=== PATIENT | male | born 2000 | race Caucasian/White ===

== ENCOUNTER 2020-08-31 23:36 | Emergency (ER) | payer SELFPAY ==
[2020-08-31 23:38] VITALS: BP 172/101; PULSE 120; RESP 20; TEMP 36.9; O2SAT 95; BMI 35.3
--- NOTE | 2020-08-31 23:48 | ED.DCSUM_ITS ---
History of Present Illness Chief Complaint: Anxiety Informant: Patient Narrative: Stated he was sitting watching TV tonight and felt lightheaded for a few seconds. His symptoms went away. He was sitting watching television not ambulating. Went outside to get fresh air. Feels back to normal and feels normal now. He does have a history of hypertension takes lisinopril. Denies any illicit drug use or alcohol use. Denies any cardiac symptoms otherwise. Did not actually feel like he was going to pass out. Does not feel anxious at this time. Past Medical History - Allergies and Home Meds Allergies/Adverse Reactions: Allergies No Known Allergies Allergy (Verified 08/31/20 23:40) Primary Care Physician: NOT,DEFINED [Primary Care Provider] - Prior records reviewed: Yes Past Medical History: - Surgical History: no surgical history Smoking Status: Never smoker Alcohol: None Drugs: None Review of Systems General: Denies: Chills, Fever, Sweats Eyes: Denies: Visual changes - bilaterally, Diplopia ENT: Denies: Rhinorrhea, Sore throat Cardiovascular: Denies: Chest pain, Palpitations Respiratory: Denies: Dyspnea, Cough, Dyspnea on exertion Gastrointestinal: Denies: Abdominal pain, Nausea, Vomiting, Diarrhea, Melena, Hematochezia Genitourinary: Denies: Dysuria, Hematuria, Frequency Musculoskeletal: Denies: Back pain, Extremity Pain Skin: Denies: Rash, Wounds Neurological: Denies: Headache, Weakness, Numbness Physical Exam Vital Signs/Narrative: Vital Signs Temp Pulse Resp BP Pulse Ox 08/31/20 23:38 98.4 F 120 H 20 H 172/101 H 95 General: Well nourished, Well developed, No Acute Distress Head: Normocephalic, Atraumatic Eyes: Perrl, EOMI ENT: Moist mucous membranes, No rhinorrhea Neck: Supple, Nontender Cardiovascular: Regular rhythm, No murmurs, Tachycardia Respiratory: No distress, CTA bilaterally, Chest nontender Abdomen: Soft, Nontender, Nondistended, Normal bowel sounds Back: Nontender, Normal Inspection Extremities: Nontender, No edema Skin: Normal color, No rash Neurological: Alert, Oriented x3, Cranial nerves II-XII grossly intact, Normal Strength, Normal Sensation Psychological: Normal affect, Normal Mood Diagnostic/Tx/Re-eval - Medical Decision Making Patient resting comfortably asymptomatic. No chronic heart conditions other than hypertension. Placed on the cardiac exercise physiologist. Patient has a mild tachycardia that is sinus rhythm. No arrhythmias noted. Patient blood pressure elevated. He stated he thinks that is a chronic condition and that he is been eating not well with too much sodium. We will follow-up as an outpatient. He wants to be discharged immediately as his symptoms are resolved. Understands he needs to have close blood pressure monitoring as an outpatient continue his lisinopril. ED Disposition - Plan for ED Patient: Disposition: Home or Assisted Living Diagnosis: Lightheadedness, Hypertension Instructions: ED Hypertension, Established Referrals: Doctor,Your [STAFF PHYSICIAN] -
[2020-09-01 00:37] VITALS: BP 194/108; PULSE 114
[2020-09-01 01:01] VITALS: BP 182/113; PULSE 116; RESP 16; O2SAT 98
== END 2020-09-01 01:05 | disposition home or self-care (01) ==
PROVIDERS: Emergency Provider Emergency Medicine
DX: R42 Dizziness and giddiness (principal); I10 Essential (primary) hypertension; Z79.899 Other long term (current) drug therapy
CPT/HCPCS: 99282

== ENCOUNTER 2020-09-01 11:50 | Emergency (ER) | payer SELFPAY ==
[2020-08-31 23:38] VITALS: BMI 35.3
[2020-09-01 11:51] VITALS: BP 205/109; PULSE 104; RESP 16; TEMP 36.2; O2SAT 99; BMI 35.3
--- NOTE | 2020-09-01 12:10 | EKG12_ITS ---
Test Reason : ANXIETY Blood Pressure : / mmHG Vent. Rate : 098 BPM Atrial Rate : 098 BPM P-R Int : 152 ms QRS Dur : 104 ms QT Int : 342 ms P-R-T Axes : 042 040 -14 degrees QTc Int : 436 ms Normal sinus rhythm with sinus arrhythmia Nonspecific T wave abnormality Abnormal ECG Confirmed by VASU CAMARA, LENKA ([id number]), editorial specialist CARLOS MENCHACA ([id number]) on 09/04/2020 10:53:42 AM Referred By: WENDY Confirmed By:LENKA LEONE MD
--- NOTE | 2020-09-01 12:12 | ED.DCSUM_ITS ---
History of Present Illness Chief Complaint: Anxiety Informant: Patient Narrative: 20-year-old male presents for the second time out 6 hours stated that he is having anxiety. He tells me he was sitting at home suddenly felt like he had a lot of energy/anxious and went outside. He got better he came to the emergency department there is noted that he was hypertensive. Patient states he does have a history of hypertension and takes lisinopril. For the past 3 days he has had nothing but made chicken sandwiches and [place] fries. He states sometimes he will order 2-3 sandwiches at a time. The patient states that he was doing fine that he had another episode to a lesser degree than the first while he is lying in bed. He states that now he is at the hospital he is feeling fine. Patient states he does feel his heart racing during the event but does not know if that comes first or as a consequence of his anxiousness. No known heart dysrhythmias. Patient really denies any other symptoms. He tells me he does not believe that bloodwork is indicated does not wish to have anything drawn. He is agreeable to an EKG. patient denies any recreational drug use supplements or energy drinks. While talking with him he starts to tell me that he is feeling his anxiety coming back and need to take off his COVID-19 protective mask. His heart rate does go to 130 and appears sinus on the monitor. Past Medical History - Allergies and Home Meds Allergies/Adverse Reactions: Allergies No Known Allergies Allergy (Verified 08/31/20 23:40) Past Medical History: - - Hypertension Surgical History: no surgical history Smoking Status: Never smoker Drugs: None Review of Systems General: Denies: Chills, Fever, Sweats Eyes: Denies: Visual changes - bilaterally, Diplopia ENT: Denies: Rhinorrhea, Sore throat Cardiovascular: Reports: Heart racing. Denies: Chest pain, Palpitations Respiratory: Denies: Dyspnea, Cough, Dyspnea on exertion Gastrointestinal: Denies: Abdominal pain, Nausea, Vomiting, Diarrhea, Melena, Hematochezia Genitourinary: Denies: Dysuria, Hematuria, Frequency Musculoskeletal: Denies: Back pain, Extremity Pain Skin: Denies: Rash, Wounds Neurological: Denies: Headache, Weakness, Numbness Psych: Reports: Anxiety. Denies: Depression, Suicidal thoughts, Suicidal ideations Physical Exam Vital Signs/Narrative: Vital Signs Temp Pulse Resp BP Pulse Ox 09/01/20 11:51 97.2 F L 104 H 16 205/109 H 99 Inital Vital Signs reviewed: Yes General: Well nourished, Well developed, No Acute Distress Head: Normocephalic, Atraumatic Eyes: Perrl, EOMI ENT: Moist mucous membranes, No rhinorrhea Neck: Supple, Nontender Cardiovascular: Regular rate, Regular rhythm, No murmurs Respiratory: No distress, CTA bilaterally, Chest nontender Abdomen: Soft, Nontender, Nondistended, Normal bowel sounds Back: Nontender, Normal Inspection Extremities: Nontender, No edema Skin: Normal color, No rash Neurological: Alert, Oriented x3, Cranial nerves II-XII grossly intact, Normal Strength, Normal Sensation Psychological: Normal affect, Normal Mood Diagnostic/Tx/Re-eval - EKG Initial EKG Interpretation: Sinus Rhythm - EKG is a normal sinus rhythm at a rate of 98. No concerning features of ACS or ectopy. No evidence of preexcitation. - Medical Decision Making Very difficult to perform an adequate work-up when the patient is reluctant to have testing done. He has now presented twice to the emergency department less than 12 hours with the same symptoms. However he does not want us to really do much for him. Patient would however like a prescription for some medication to help him with his anxiety. I think that there are several red flags here. Patient has had 2 visits in less than 6 hours. He is does not want us to do a complete evaluation on him. He cannot provide a photo ID or copy of his [place] [employer] insurance. I can write for some Vistaril. Follow-up with his doctors when he returns home. ED Disposition - Plan for ED Patient: Disposition: Home or Assisted Living Diagnosis: Anxiety, Palpitations Instructions: ED Anxiety Reaction Prescriptions: hydrOXYzine pamoate capsule [Vistaril pamoate capsule] 25 mg PO TID PRN PRN #21 cap PRN Reason: Anxiety Prescription Printed Additional Instructions: Follow-up with your doctor when you get back home to [place].
[2020-09-01 13:05] VITALS: BP 142/86; PULSE 66; RESP 20; O2SAT 99
== END 2020-09-01 13:07 | disposition home or self-care (01) ==
PROVIDERS: Emergency Provider Emergency Medicine
DX: F41.9 Anxiety disorder, unspecified (principal); R00.2 Palpitations; I10 Essential (primary) hypertension; Z79.899 Other long term (current) drug therapy
CPT/HCPCS: 93005; 99283